=== PATIENT | female | born 1970 | race Caucasian/White ===

== ENCOUNTER 2017-03-19 05:45 | Day surgery (SDC) | payer BC ==
[~2017-03-19] VITALS: Ht 167.6 cm; Wt 104.3 kg
[2017-03-19] MEDS ORDERED: NEOSTIGMINE METHYLSULFATE 1 MG/ML, 10 ML VIAL IVP ONE (05:46)
[2017-03-19] MEDS ORDERED: NS 1000 ML BAG IV ONE (05:46)
[2017-03-19] MEDS ORDERED: SEVOFLURANE 15 MIN GAS INH ONE (05:46)
[2017-03-19] MEDS ORDERED: LR 1,000 ML IV.SOLN IV ONE (05:46)
[2017-03-19] MEDS ORDERED: ONDANSETRON HCL 4 MG/2 ML VIAL IVP ONE (05:46)
[2017-03-19] MEDS ORDERED: KETOROLAC TROMETHAMINE 30 MG VIAL IVP ONE (05:46)
[2017-03-19] MEDS ORDERED: fentaNYL CITRATE 250 MCG/5 ML AMP IV ONE (05:46)
[2017-03-19] MEDS ORDERED: BUPIVACAINE /EPINEPHRINE/PF 0.5% 30 ML VIAL INJ ONE (05:46)
[2017-03-19] MEDS ORDERED: NS IRRIG SOLN 1000 ML IR ONE (05:46)
[2017-03-19] MEDS ORDERED: MIDAZOLAM HCL 5 MG/ML VIAL (VERSED) IV ONE (05:46)
[2017-03-19] MEDS ORDERED: GLYCOPYRROLATE 0.2 MG/ML VIAL IJ ONE (05:46)
[2017-03-19] MEDS ORDERED: PROPOFOL 200MG/ 20ML VIAL (DIPRIVAN) IV ONE (05:46)
[2017-03-19] MEDS ORDERED: ROCURONIUM BROMIDE 10 MG/ML (ZEMURON) IV ONE (05:46)
[2017-03-19] MEDS ORDERED: LR 1,000 ML IV SCH (08:32)
[2017-03-19] MEDS ORDERED: METOCLOPRAMIDE HCL 10 MG/2 ML VIAL IVP PRN (08:45)
[2017-03-19] MEDS ORDERED: MORPHINE 2 MG/ML INJ. SYRINGE IVP PRN ×3 (08:45)
[2017-03-19] MEDS ORDERED: PROMETHAZINE HCL 25 MG/ML AMP IM PRN (10:00)
[2017-03-19] MEDS ORDERED: HYDROmorphone 2 MG TAB PO PRN (10:00)
[2017-03-19] MEDS ORDERED: ONDANSETRON HCL 4 MG/2 ML VIAL IVP PRN (10:00)
[2017-03-19] MEDS ORDERED: OXYCODONE/ACETAMINOPHEN 5-325 TABLET PO PRN (10:00)
[2017-03-19] MEDS: MORPHINE 4 MG/ML INJ. SYRINGE ONE ×2 (10:10→10:30)
[2017-03-19] MEDS ORDERED: OXYCODONE/ACETAMINOPHEN 5-325 TABLET ONE (11:12)
[2017-03-19 11:29] VITALS: BP_SYST 141
== END 2017-03-19 12:44 | disposition home or self-care (01) ==
LOC: SDS 05:45 → SMU 05:45 → SDS 12:44
PROVIDERS: ATTEND Obstetrics & Gynecology
DX: N70.92 Oophoritis, unspecified (principal); N70.91 Salpingitis, unspecified
CPT/HCPCS: 36415; 58661; 86886; 86900; 86901; 88305; J1885; J2250; J2270; J2405; J2704; J2710; J3010; J3490 ×2; J7030; J7120

== ENCOUNTER 2017-09-04 05:30 | Day surgery (SDC) | payer BC ==
[~2017-09-04] VITALS: Ht 165.1 cm; Wt 108.9 kg
[2017-09-04] MEDS ORDERED: KETOROLAC TROMETHAMINE 30 MG VIAL IVP ONE (07:25)
[2017-09-04] MEDS ORDERED: NS IRRIG SOLN 1000 ML IR ONE (07:25)
[2017-09-04] MEDS ORDERED: CEFAZOLIN 2 GM IVPB PREMIX 50 ML IV ONE (07:25)
[2017-09-04] MEDS ORDERED: ONDANSETRON HCL 4 MG/2 ML VIAL IVP ONE (07:25)
[2017-09-04] MEDS ORDERED: PROPOFOL 200MG/ 20ML VIAL (DIPRIVAN) IV ONE (07:25)
[2017-09-04] MEDS ORDERED: NS 1000 ML BAG IV ONE (07:25)
[2017-09-04] MEDS ORDERED: SUGAMMADEX SODIUM 200 MG/2 ML VIAL IV ONE (07:25)
[2017-09-04] MEDS ORDERED: ROCURONIUM BROMIDE 10 MG/ML (ZEMURON) IV ONE (07:25)
[2017-09-04] MEDS ORDERED: BUPIVACAINE /PF 0.25% 30 ML VIAL INJ ONE (07:25)
[2017-09-04] MEDS ORDERED: SEVOFLURANE 15 MIN GAS INH ONE (07:25)
[2017-09-04] MEDS ORDERED: LR 1,000 ML IV.SOLN IV ONE (07:25)
[2017-09-04] MEDS ORDERED: SUCCINYLCHOLINE CHLORIDE 20 MG/ML(QUELICIN) IVP ONE (07:25)
[2017-09-04] MEDS ORDERED: MIDAZOLAM HCL 5 MG/5 ML VIAL IVP ONE (07:25)
[2017-09-04] MEDS ORDERED: DEXTROSE 50% JECT 50 ML DISP.SYRIN IVP ONE (07:25)
[2017-09-04] MEDS ORDERED: fentaNYL CITRATE/PF 100 MCG/2 ML AMP IVP ONE (07:25)
[2017-09-04] MEDS ORDERED: LR 1,000 ML IV SCH (08:47)
[2017-09-04] MEDS ORDERED: MORPHINE 4 MG/ML INJ. SYRINGE IVP PRN ×3 (09:00)
[2017-09-04] MEDS ORDERED: METOCLOPRAMIDE HCL 10 MG/2 ML VIAL IVP PRN (09:00)
[2017-09-04] MEDS ORDERED: HYDROmorphone 2 MG TAB PO PRN (10:30)
[2017-09-04] MEDS ORDERED: OXYCODONE/ACETAMINOPHEN 5-325 TABLET PO PRN (10:30)
[2017-09-04] MEDS ORDERED: ONDANSETRON HCL 4 MG/2 ML VIAL IVP PRN (10:30)
[2017-09-04] MEDS ORDERED: PROMETHAZINE HCL 25 MG/ML AMP IM PRN (10:30)
[2017-09-04] MEDS ORDERED: MORPHINE 4 MG/ML INJ. SYRINGE ONE (10:42)
[2017-09-04] MEDS ORDERED: HYDROmorphone 2 MG TAB ONE (11:45)
[2017-09-04 12:02] VITALS: BP_SYST 124
== END 2017-09-04 14:15 | disposition home or self-care (01) ==
LOC: SDS 05:30 → SMU 05:30 → SDS 14:15
PROVIDERS: ATTEND Obstetrics & Gynecology
DX: D25.2 Subserosal leiomyoma of uterus (principal); D25.1 Intramural leiomyoma of uterus; N80.0 Endometriosis of uterus; Z80.3 Family history of malignant neoplasm of breast; D64.9 Anemia, unspecified; E66.01 Morbid (severe) obesity due to excess calories
CPT/HCPCS: 36415; 58571; 86886; 86900; 86901; 88307; C1727; C9399; J0330; J0690; J1885; J2250; J2270; J2405; J2704; J3010; J3490; J7030; J7120; E0190